=== PATIENT | male | born 2000 | race Two or more races ===

== ENCOUNTER 2025-01-06 19:32 | Emergency (ER) | payer MEDICAID, SELFPAY ==
[2025-01-06 19:34] VITALS: BMI 20.7
--- NOTE | 2025-01-06 19:49 | EKG_ITS ---
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
[2025-01-06 20:07] VITALS: BP 156/92; PULSE 115; RESP 20; TEMP 36.6; O2SAT 99
--- NOTE | 2025-01-06 21:40 | PD.EDRME ---
Rapid Medical Screening Exam E Arrival date/time: 01/06/25 19:32 24M with history of unknown cardiac condition (on baby aspirin) presents to ED with heart palps after taking CBD gummy for the first time because he wanted to see if it would calm him down because he has a dentist appt tomorrow. Patient does not want to wait for observation period or for discharge paperwork. Chief Complaint: Arrhythmia/Palpitations Vital signs: Vital Signs Temperature 97.8 F 01/06/25 20:07 Pulse Rate 115 H 01/06/25 20:07 Respiratory Rate 20 01/06/25 20:07 Blood Pressure 156/92 H 01/06/25 20:07 Pulse Oximetry (%) 99 01/06/25 20:07 Oxygen Delivery Method Room Air 01/06/25 20:07
== END 2025-01-06 21:40 | disposition left against medical advice (07) ==
PROVIDERS: Emergency Provider Emergency Medicine; PCP Family Medicine
DX: R00.0 Tachycardia, unspecified (principal); I49.1 Atrial premature depolarization
CPT/HCPCS: 93005; 99283